=== PATIENT | female | born 2000 | race African-American/Black ===

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

== ENCOUNTER 2022-02-12 10:10 | Emergency (ER) | payer MEDICAID ==
[~2022-02-12] VITALS: Ht 167.6 cm; Wt 68.0 kg
[2022-02-12 10:16] VITALS: BP 120/71
[2022-02-12 10:53] LABS: CLARITY URINE CLEAR (CLEAR); COLOR URINE YELLOW (YELLOW); KETONES URINE NEGATIVE (NEGATIVE); LEUKOCYTE ESTERASE URINE 1+ (NEGATIVE); NITRITE URINE NEGATIVE (NEGATIVE); OCCULT BLOOD URINE TRACE (NEGATIVE); PROTEIN URINE NEGATIVE (NEGATIVE); SPECIFIC GRAVITY URINE 1.018 (1.005-1.030); UROBILINOGEN URINE 0.2 E.U./dL (0.2-1.0)
[2022-02-12 11:51] LABS: BASOPHILS % 0.8 % (0.0-2.0); EOSINOPHILS % 1.5 % (0.0-5.0); HEMATOCRIT. 38.1 % (36.0-48.0); HEMOGLOBIN. 13.1 g/dL (12.0-16.0); LYMPHOCYTES % 30.3 % (20.0-50.0); MEAN CORPUSCULAR HEMOGLOBIN 29.8 pg (28.0-32.0); MEAN CORPUSCULAR VOLUME 86.6 fL (81.0-99.0); MEAN PLATELET VOLUME 7.3 fl (7.4-10.4); MONOCYTES % 13.1 % (2.0-8.0); NEUTROPHILS % 54.3 % (40.0-76.0); PLATELET 328 x1000/uL (130-400); RED BLOOD CELL COUNT 4.41 mill/uL (4.2-5.4); RED CELL DISTRIBUTION WIDTH 12.7 % (11.6-14.6)
[2022-02-12 11:58] LABS: CHLORIDE 107 mEq/L (98-107)
[2022-02-12 12:11] LABS: B-HCG QUANTITATIVE < 1 mIU/mL (<3)
[2022-02-12] MEDS ORDERED: METR500T MT (12:30)
[2022-02-12] MEDS ORDERED: LACT1CAP78 MT (12:30)
== END 2022-02-12 13:07 | disposition home or self-care (01) ==
LOC: ER 11:20
DX: A59.01 Trichomonal vulvovaginitis (principal); Z79.899 Other long term (current) drug therapy
CPT/HCPCS: 36415; 76830; 76856; 80053; 81003; 81025; 84702; 85025; 99284